=== PATIENT | male | born 1980 ===

== ENCOUNTER 2018-11-12 13:09 | Outpatient (CLI) | payer OTHER | END 2018-11-12 13:15 | disposition home or self-care (01) | LOC: OFIC 805 13:09 | DX: J34.2 Deviated nasal septum (principal); R09.81 Nasal congestion; H61.22 Impacted cerumen, left ear; G47.33 Obstructive sleep apnea (adult) (pediatric); H90.42 Sensorineural hearing loss, unilateral, left ear, with unrestricted hearing on the contralateral side ==